=== PATIENT | male | born 1990 | race Native Hawaiian/Other Pacific Islander ===

== ENCOUNTER 2019-01-06 10:12 | Emergency (ER) | payer OTHER ==
[~2019-01-06] VITALS: Ht 170.2 cm; Wt 93.0 kg
[2019-01-06 13:15] VITALS: BP 127/81; TEMP 97.9
== END 2019-01-06 13:15 | disposition home or self-care (01) ==
LOC: ED 10:12
PROC: 0KQT0ZZ Repair Left Lower Leg Muscle, Open Approach (ICD-10-PCS; principal; 2019-01-06)
DX: S81.822A Laceration with foreign body, left lower leg, initial encounter (principal); W17.2XXA Fall into hole, initial encounter; Y92.89 Other specified places as the place of occurrence of the external cause
CPT/HCPCS: 99283; J7040

== ENCOUNTER 2019-01-08 09:25 | Emergency (ER) | payer OTHER ==
[~2019-01-08] VITALS: Ht 170.2 cm; Wt 93.0 kg
[2019-01-08 09:30] VITALS: BP 137/92; TEMP 98
== END 2019-01-08 10:00 | disposition home or self-care (01) ==
LOC: ED 09:25
DX: Z48.01 Encounter for change or removal of surgical wound dressing (principal)
CPT/HCPCS: J7040

== ENCOUNTER 2019-01-17 10:42 | Emergency (ER) | payer OTHER ==
[~2019-01-17] VITALS: Ht 170.2 cm; Wt 93.0 kg
[2019-01-17 10:50] VITALS: BP 120/85; TEMP 98
== END 2019-01-17 11:36 | disposition home or self-care (01) ==
LOC: ED 10:42
DX: Z48.02 Encounter for removal of sutures (principal)

== ENCOUNTER 2019-01-20 07:01 | Emergency (ER) | payer OTHER ==
[~2019-01-20] VITALS: Ht 170.2 cm; Wt 93.0 kg
[2019-01-20 08:35] VITALS: BP 124/91; TEMP 98.1
== END 2019-01-20 08:35 | disposition home or self-care (01) ==
LOC: ED 07:01
DX: T81.41XA Infection following a procedure, superficial incisional surgical site, initial encounter (principal); L08.9 Local infection of the skin and subcutaneous tissue, unspecified